=== PATIENT | male | born 1940 | race Caucasian/White ===

== ENCOUNTER 2016-11-03 08:31 | Outpatient (CLI) | payer MEDICARE | END 2016-11-03 08:32 | disposition home or self-care (01) | DX: E78.00 Pure hypercholesterolemia, unspecified (principal) ==

== ENCOUNTER 2017-12-30 07:49 | Outpatient (CLI) | payer MEDICARE ==
[2017-12-30 10:22] LABS: ALT ALANINE AMINOTRANSFERASE 12 IU/L (10-60); AST ASPARTATE AMINOTRANSFERASE 23 IU/L (10-42); BUN - BLOOD UREA NITROGEN 22 mg/dL (6-20); CARBON DIOXIDE - CO2 26 mmol/L (21-32); CHLORIDE 101 mmol/L (101-111); CHOL/HDL RATIO 2.7 (<5.0); CHOLESTEROL 209 mg/dL; GFR - MDRD 73 (>89); GLUCOSE 91 mg/dL (70-100); HDL CHOLESTEROL 77 mg/dL; LDL CHOLESTEROL,CALCULATED 118 mg/dL; LDL/HDL RATIO 1.5 (<3.6); SODIUM 137 mmol/L (135-145); VLDL CHOLESTEROL 14 mg/dL
== END 2017-12-30 07:50 | disposition home or self-care (01) ==
LOC: LAB.F 07:49
PROVIDERS: ATTEND Internal Medicine
DX: I44.2 Atrioventricular block, complete (principal); E78.5 Hyperlipidemia, unspecified
CPT/HCPCS: 36415; 80048; 80061; 83721; 84450; 84460

== ENCOUNTER 2018-05-15 10:02 | Outpatient (CLI) | payer MEDICARE ==
[2018-05-15 17:57] LABS: BASOPHILS % (AUTO) 0.3 %; EOSINOPHILS # (AUTO) 0.1 10^3/uL (0.0-0.7); EOSINOPHILS % (AUTO) 1.6 %; HGB - HEMOGLOBIN 15.2 g/dL (14.0-18.0); LYMPHOCYTES % (AUTO) 32.4 %; MEAN CORPUSCULAR HGB CONC 34.1 g/dL (32.0-36.0); MEAN CORPUSCULAR VOLUME 96.9 fL (80.0-94.0); MEAN PLATELET VOLUME 7.2 fL (7.4-11.4); MONOCYTES # (AUTO) 0.6 10^3/uL (0.0-1.0); MONOCYTES % (AUTO) 8.9 %; NEUTROPHILS # (AUTO) 3.6 10^3/uL (1.5-6.6); NEUTROPHILS % (AUTO) 56.8 %; PLT - PLATELET COUNT 165 10^3/uL (130-450); RED BLOOD COUNT 4.62 10^6/uL (4.70-6.10); RED CELL DISTRIBUTION WIDTH 13.4 % (12.0-15.0); WHITE BLOOD COUNT 6.3 x10^3/uL (4.8-10.8)
[2018-05-15 18:01] LABS: PT - PROTHROMBIN TIME 10.9 secs (9.9-12.6)
[2018-05-15 18:09] LABS: CALCIUM 9.3 mg/dL (8.5-10.3); CREATININE 0.9 mg/dL (0.6-1.2)
== END 2018-05-15 10:03 | disposition home or self-care (01) ==
LOC: LAB.F 10:02
PROVIDERS: ATTEND Internal Medicine
DX: T82.110A Breakdown (mechanical) of cardiac electrode, initial encounter (principal); I44.2 Atrioventricular block, complete
CPT/HCPCS: 36415; 80048; 85025; 85610; 85730

== ENCOUNTER 2019-01-02 07:30 | Outpatient (CLI) | payer MEDICARE ==
[2019-01-02 10:50] LABS: HGB - HEMOGLOBIN 14.9 g/dL (14.0-18.0); MEAN CORPUSCULAR HEMOGLOBIN 33.1 pg (27.0-31.0); MEAN CORPUSCULAR HGB CONC 33.6 g/dL (32.0-36.0); MEAN CORPUSCULAR VOLUME 98.7 fL (80.0-94.0); MEAN PLATELET VOLUME 7.2 fL (7.4-11.4); RED BLOOD COUNT 4.5 10^6/uL (4.70-6.10); RED CELL DISTRIBUTION WIDTH 13.7 % (12.0-15.0); WHITE BLOOD COUNT 4.4 x10^3/uL (4.8-10.8)
[2019-01-02 11:08] LABS: ALBUMIN 4.1 g/dL (3.2-5.5); ALBUMIN/GLOBULIN RATIO 1.1 (1.0-2.2); ALKALINE PHOSPHATASE 73 IU/L (42-121); ALT ALANINE AMINOTRANSFERASE 19 IU/L (10-60); AST ASPARTATE AMINOTRANSFERASE 38 IU/L (10-42); BILIRUBIN,TOTAL 0.8 mg/dL (0.2-1.0); BUN - BLOOD UREA NITROGEN 19 mg/dL (6-20); CALCIUM 9.2 mg/dL (8.5-10.3); CARBON DIOXIDE - CO2 23 mmol/L (21-32); CHLORIDE 104 mmol/L (101-111); CHOL/HDL RATIO 2.3 (<5.0); CHOLESTEROL 211 mg/dL; CREATININE 0.8 mg/dL (0.6-1.2); GFR - MDRD 94 (>89); GLUCOSE 91 mg/dL (70-100); HDL CHOLESTEROL 93 mg/dL; LDL CHOLESTEROL,CALCULATED 104 mg/dL; LDL/HDL RATIO 1.1 (<3.6); SODIUM 138 mmol/L (135-145); VLDL CHOLESTEROL 14 mg/dL
[2019-01-02 11:38] LABS: HB2 TOTAL 16.1 g/dL; HEMOGLOBIN A1C 0.54 g/dL; HEMOGLOBIN A1C % 5.2 % (4.6-6.2)
== END 2019-01-02 07:31 | disposition home or self-care (01) ==
LOC: LAB.F 07:30
PROVIDERS: ATTEND Internal Medicine
DX: E78.00 Pure hypercholesterolemia, unspecified (principal); R73.02 Impaired glucose tolerance (oral); M10.9 Gout, unspecified; I35.0 Nonrheumatic aortic (valve) stenosis
CPT/HCPCS: 36415; 80053; 80061; 83036; 83721; 84550; 85027

== ENCOUNTER 2020-01-26 04:13 | Outpatient (CLI) | payer MEDICARE | END 2020-01-26 04:14 | disposition EMS.NT | LOC: EMS 04:13 | PROVIDERS: ATTEND Surgery | DX: R51 Headache (principal) ==

== ENCOUNTER 2020-01-26 05:31 | Emergency (ER) | payer MEDICARE ==
--- NOTE | 2020-01-26 05:33 | ED Physician Documentation ---
PD HPI HEAD INJURY - Stated complaint Stated Complaint: HEAD PX/INJ - History obtained from History obtained from: Patient - History of Present Illness Mechanism of head injury: Blow Where head injury occurred: Home Timing - onset: How many weeks ago (1) Pain level now: 5 Location of injury: Back Quality of pain: Pain, Aching, Dull, Sharp, Other (initially pain had been aching and dull, but became sharp last night) Associated symptoms: No: LOC, AMS, Amnesia, Nausea / vomiting, Neck pain, Paresthesias Symptoms improve with: Nothing Symptoms worsen with: Palpation. No: Movement, Light, Noise Contributing factors: No: Anticoagulated, Intoxicated Similar symptoms before: Has not had sx before Recently seen: Not recently seen - Additional information Additional information: one week ago, patient was doing yardwork when he stepped on a rake; he was taking a step backwards, and thus the handle came up and struck him in the back of the head. He denies LOC, has had a headache since then but has been able to control the discomfort with tylenol and ibuprofen. Last night, the pain became worse and changed in quality from dull ache to a sharp, stinging sensation. The pain is not severe, per patient, but enough that it kept him from sleeping for most of the night. He called 911 and was evaluated at home and although he declined transport, he took the advice of the medics to come to ED for evaluation (driven to ED by his ). Patient only c/o posterior/occipital headache. Denies numbness, weakness, visual changes, nausea, vomiting, AMS Review of Systems Eyes: reports: Reviewed and negative Musculoskeletal: denies: Neck pain Neurologic: reports: Headache, Head injury. denies: Generalized weakness, Focal weakness, Numbness, LOC PD PAST MEDICAL HISTORY - Past Medical History Past Medical History: Yes Cardiovascular: High cholesterol - Present Medications Home Medications: Ambulatory Orders Medication Instructions Recorded Confirmed Aspirin 81 mg DAILY 01/26/20 01/26/20 Simvastatin 40 mg DAILY 01/26/20 01/26/20 - Allergies Allergies/Adverse Reactions: Allergies Allergy/AdvReac Type Severity Reaction Status Date / Time No Known Drug Allergies Allergy Verified 01/26/20 05:39 - Living Situation Living Situation: reports: With spouse/s.o. Living Arrangement: reports: At home PD ED PE NORMAL - Vitals Vital signs reviewed: Yes - General General: Alert and oriented X 3, No acute distress - HEENT HEENT: PERRL, EOMI, Other (mild occipital scalp tenderness with subtle swelling. no bony step-off. no neck tenderness. no echymosis including no post-auricular or infraorbital echymoses) - Neck Neck: No bony TTP - Neuro Neuro: Alert and oriented X 3, Normal speech Eye Opening: Spontaneous Motor: Obeys Commands Verbal: Oriented GCS Score: 15 Results - Vitals Vitals: Vital Signs - 24 hr 01/26/20 01/26/20 05:34 06:26 Temperature 36.3 C L Heart Rate 65 60 Respiratory 18 16 Rate Blood Pressure 160/77 H 152/71 H O2 Saturation 98 99 Oxygen O2 Source Room air - Rads (name of study) CT head Radiology: Prelim report reviewed, See rad report PD MEDICAL DECISION MAKING - ED course Complexity details: reviewed results, re-evaluated patient, considered differential, d/w patient ED course: patient declines analgesics, both in ED and as rx. He says he prefers to continue with tylenol and ibuprofen for now. No acute findings on CTH. Results d/w patient. Departure - Departure Disposition: 01 Home, Self Care Clinical Impression: Head injury Qualifiers: Encounter type: initial encounter Qualified Code(s): S09.90XA - Unspecified injury of head, initial encounter Condition: Good Instructions: ED Head Injury Closed Discharge Date/Time: 01/26/20 06:26
--- NOTE | 2020-01-26 06:13 | CT Report ---
Reason: headache, recent injury Procedure Date: 01/26/2020 Accession Number: [id number] / [id number] Procedure: CT - HEAD WO CPT Code: Final Report FULL RESULT: EXAM: CT HEAD EXAM DATE: 01/26/2020 06:06 AM. CLINICAL HISTORY: Headache, recent injury. COMPARISON: None. TECHNIQUE: Multiaxial CT images were obtained from the foramen magnum to the vertex. Reformats: Sagittal and coronal. IV contrast: None. In accordance with CT protocol optimization, one or more of the following dose reduction techniques were utilized for this exam: automated exposure control, adjustment of mA and/or KV based on patient size, or use of iterative reconstructive technique. FINDINGS: Parenchyma: No intraparenchymal hemorrhage. No evidence of mass, midline shift, or CT findings of acute infarction. Schulte-white differentiation is distinct. 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 Extraaxial Spaces: Normal for age. No subdural or epidural collections identified. Ventricles: The ventricles and cortical sulci are enlarged, consistent with age-related tissue loss. Sinuses and orbits: Imaged paranasal sinuses, orbits, and mastoids show no significant abnormality. Bones: No evidence of fracture or calvarial defect. Other: None. IMPRESSION: Generalized age-related cortical atrophic changes without evidence of acute intracranial abnormality. RADIA
[2020-01-26 06:26] VITALS: BP 152/71
== END 2020-01-26 06:26 | disposition home or self-care (01) ==
LOC: ED 05:31
DX: S09.90XA Unspecified injury of head, initial encounter (principal); W22.8XXA Striking against or struck by other objects, initial encounter; Y93.H1 Activity, digging, shoveling and raking; Y92.007 Garden or yard of unspecified non-institutional (private) residence as the place of occurrence of the external cause
CPT/HCPCS: 70450; 99283; 99284

== ENCOUNTER 2020-03-29 09:23 | Emergency (ER) | payer MEDICARE ==
--- NOTE | 2020-03-29 09:44 | ED Physician Documentation ---
PD HPI ABD PAIN - Stated complaint Stated Complaint: ABD PX/NAUSEA - Chief complaint Chief Complaint: Abd Pain - History obtained from History obtained from: Patient - History of Present Illness Timing - onset: Last night Timing - duration: Hours (12) Timing - details: Abrupt onset, Still present, Waxing and waning Quality: Cramping, Aching, Fullness/distended (moderate), Pain Location: Periumbilical Radiation: Lower back Improved by: No: Vomiting Associated symptoms: Nausea, Vomiting (several times through the night). No: Fever, Diarrhea, Constipation (states had small BM this morning) Similar symptoms before: Has not had sx before Review of Systems Constitutional: denies: Fever, Chills, Myalgias Nose: denies: Rhinorrhea / runny nose, Congestion Throat: denies: Sore throat Respiratory: denies: Cough GI: reports: Abdominal Pain, Abdominal Swelling, Nausea, Vomiting. denies: Constipation, Diarrhea, Hematemesis : denies: Dysuria, Frequency Skin: denies: Rash Musculoskeletal: denies: Neck pain, Extremity swelling Neurologic: reports: Generalized weakness. denies: Focal weakness, Numbness, Near syncope PD PAST MEDICAL HISTORY - Past Medical History Cardiovascular: High cholesterol, Valve disorder Respiratory: None Neuro: None Endocrine/Autoimmune: None - Past Surgical History Past Surgical History: Yes General: Appendectomy Cardiovascular: Valve replacement, Pacemaker - Present Medications Home Medications: Ambulatory Orders Medication Instructions Recorded Confirmed Aspirin 81 mg DAILY 01/26/20 01/26/20 Simvastatin 40 mg DAILY 01/26/20 01/26/20 Hydrocodone/Acetaminophen [[place] 1 each PO Q6H PRN #12 tablet 03/29/20 5-325 Tablet] Ondansetron Odt [Zofran] 4 mg TL Q6H PRN #10 tablet 03/29/20 - Allergies Allergies/Adverse Reactions: Allergies Allergy/AdvReac Type Severity Reaction Status Date / Time No Known Drug Allergies Allergy Verified 03/29/20 19:00 - Social History Does the pt smoke?: No Smoking Status: Never smoker Does the pt drink ETOH?: No Does the pt have substance abuse?: No - Immunizations Immunizations are current?: Yes - POLST Patient has POLST: No PD ED PE NORMAL - Vitals Vital signs reviewed: Yes - General General: Alert and oriented X 3, Well developed/nourished, Other (appears uncomfortable due to abd pain) - Neck Neck: Supple, no meningeal sign, No adenopathy - Cardiac Cardiac: RRR, Other (2/6 murmur noted left chest. ) - Respiratory Respiratory: No respiratory distress, Clear bilaterally - Abdomen Abdomen: Normal bowel sounds, Soft, No organomegaly, Other (mild distension mid abd. Bowel sounds are increased. No percussion nor rebound tenderness. ) - Male Male : Deferred - Rectal Rectal: Deferred - Back Back: No CVA TTP - Derm Derm: Normal color, Warm and dry - Extremities Extremities: No tenderness to palpate, Normal ROM s pain, No edema, No calf tenderness / cord - Neuro Neuro: Alert and oriented X 3, No motor deficit, Normal speech Results - Vitals Vitals: Vital Signs - 24 hr 03/29/20 03/29/20 03/29/20 09:36 10:30 11:00 Temperature 36.7 C Heart Rate 74 70 68 Respiratory 20 16 16 Rate Blood Pressure 164/75 H 153/83 H 145/68 H O2 Saturation 100 98 99 03/29/20 03/29/20 03/29/20 11:30 12:00 13:30 Temperature Heart Rate 66 78 71 Respiratory 16 16 16 Rate Blood Pressure 139/71 H 134/68 H 130/67 O2 Saturation 98 98 97 03/29/20 13:40 Temperature 36.5 C Heart Rate 70 Respiratory 18 Rate Blood Pressure 133/73 H O2 Saturation 98 Oxygen O2 Source Room air - Labs Labs: Laboratory Tests 03/29/20 03/29/20 09:50 09:50 WBC 8.6 RBC 4.74 Hgb 16.1 Hct 46.4 MCV 97.9 H MCH 34.0 H MCHC 34.7 RDW 13.1 Plt Count 166 MPV 9.4 Neut # (Auto) 7.1 H Lymph # (Auto) 0.8 L [place] # (Auto) 0.7 Eos # (Auto) 0.0 Baso # (Auto) 0.0 Absolute Nucleated RBC 0.00 Nucleated RBC % 0.0 Sodium 137 Potassium 3.9 Chloride 97 L Carbon Dioxide 26 Anion Gap 14.0 H BUN 19 Creatinine 0.9 Estimated GFR (MDRD) 82 L Glucose 129 H Calcium 9.5 Total Bilirubin 1.5 H AST 35 ALT 16 Alkaline Phosphatase 65 Total Protein 8.5 H Albumin 4.6 Globulin 3.9 Albumin/Globulin Ratio 1.2 Lipase 30 - Rads (name of study) abd CT Radiology: Prelim report reviewed (dilated proximal small bowel with A/F levels c/w partial small bowel. ), See rad report PD MEDICAL DECISION MAKING - ED course Complexity details: re-evaluated patient (He is feeling better with fluidsa nd meds. CT c/w partial SBO. he is feeling improved and able to take sips of liquids. He would perefer to go home. Watched in ER another hour or more to ensure seeming to stay improved. ), considered differential (I offered observation or admission to the patient given his findings on CT scan consistent with's partial small bowel obstruction. He was here another hour to an able to drink a glass or 2 of water and felt comfortable and wanted to go home. Shared decision was to go home with clear liquids/meds), d/w patient Departure - Departure Disposition: 01 Home, Self Care Clinical Impression: Partial small bowel obstruction Abdominal pain Qualifiers: Abdominal location: upper abdomen, unspecified Qualified Code(s): R10.10 - Upper abdominal pain, unspecified Vomiting Qualifiers: Vomiting type: unspecified Vomiting Intractability: non-intractable Nausea presence: with nausea Qualified Code(s): R11.2 - Nausea with vomiting, unspecified Condition: Stable Record reviewed to determine appropriate education?: Yes Instructions: ED Abdominal Pain Unkn Cause Follow-Up: Evans Winston MD [Primary Care Provider] - Prescriptions: Hydrocodone/Acetaminophen [[place]tt 5-325 Tablet] 1 each PO Q6H PRN #12 tablet PRN Reason: Pain Ondansetron Odt [Zofran] 4 mg TL Q6H PRN #10 tablet PRN Reason: Nausea / Vomiting Comments: Liquids only for this afternoon and liquid diet into tomorrow. Progressed to soft food and then regular diet tomorrow if tolerated. Ondansetron if needed for nausea. Tylenol or pain medicine if needed for pains. Recheck if worsening pain or repetitive vomiting despite medicine. Discharge Date/Time: 03/29/20 13:48
[2020-03-29 09:59] LABS: BASOPHILS % (AUTO) 0.2 %; HGB - HEMOGLOBIN 16.1 g/dL (14.0-18.0); LYMPHOCYTES # (AUTO) 0.8 10^3/uL (1.5-3.5); LYMPHOCYTES % (AUTO) 9.3 %; MEAN CORPUSCULAR HGB CONC 34.7 g/dL (32.0-36.0); MEAN CORPUSCULAR VOLUME 97.9 fL (80.0-94.0); MEAN PLATELET VOLUME 9.4 fL (7.4-11.4); MONOCYTES # (AUTO) 0.7 10^3/uL (0.0-1.0); MONOCYTES % (AUTO) 7.8 %; NEUTROPHILS # (AUTO) 7.1 10^3/uL (1.5-6.6); NEUTROPHILS % (AUTO) 82.2 %; PLT - PLATELET COUNT 166 10^3/uL (130-450); RED BLOOD COUNT 4.74 10^6/uL (4.70-6.10); RED CELL DISTRIBUTION WIDTH 13.1 % (12.0-15.0); WHITE BLOOD COUNT 8.6 x10^3/uL (4.8-10.8)
[2020-03-29 10:13] LABS: ALBUMIN 4.6 g/dL (3.2-5.5); ALBUMIN/GLOBULIN RATIO 1.2 (1.0-2.2); BILIRUBIN,TOTAL 1.5 mg/dL (0.2-1.0); CALCIUM 9.5 mg/dL (8.5-10.3); CREATININE 0.9 mg/dL (0.6-1.2); TOTAL PROTEIN 8.5 g/dL (6.7-8.2)
[2020-03-29] MEDS ORDERED: ONDANSETRON 4 MG/2 ML VIAL IVP STA (10:26)
[2020-03-29] MEDS ORDERED: SODIUM CHLORIDE 0.9% 1,000 ML IV STA (10:26)
[2020-03-29] MEDS ORDERED: HYDROmorphone 1 MG/ML CARPUJECT IVP STA (10:26)
[2020-03-29] MEDS ORDERED: IOVERSOL 320 100 ML VIAL IVP ONE ×2 (10:37→10:59)
--- NOTE | 2020-03-29 11:05 | CT Report ---
PROCEDURE: Abdomen/Pelvis W INDICATIONS: mid to upper abd pain since last evening CONTRAST: IV CONTRAST: Optiray 320 ml: 100 PO CONTRAST: *NO PO CONTRAST TECHNIQUE: After the administration of oral and intravenous contrast, 5 mm thick sections acquired from the diap hragms to the symphysis. 5 mm thick coronal and sagittal reformats were acquired. For radiation dos e reduction, the following was used: automated exposure control, adjustment of mA and/or kV accordin g to patient size. COMPARISON: None. FINDINGS: Image quality: Excellent. ABDOMEN: Lung bases: Lung bases are clear. Heart size is normal. Solid organs: Liver is borderline prominent with steatosis. The spleen is unremarkable. Gallbladder is unremarkable Biliary system is non dilated. Pancreas enhances normally. No adrenal nodules. Ki dneys demonstrate normal size and enhancement, without hydronephrosis. Peritoneum and bowel: There are dilated fluid-filled loops of small bowel with transition point suspe cted to be within the lower central abdomen/upper pelvis. No free air. Trace perihepatic fluid. Line [place] diverticula are present without inflammatory change. Nodes and vessels: No retroperitoneal or mesenteric adenopathy by size criteria. Aorta and inferior vena cava are normal in size. Miscellaneous: No ventral hernias. Mild hiatal hernia. PELVIS: Genitourinary: Bladder wall thickness is normal. Miscellaneous: No inguinal hernias or adenopathy. Bones: No suspicious bony lesions. No vertebral body compression fractures. IMPRESSION: 1. Prominently dilated fluid-filled loops of small bowel as above. Overall appearance is most consist ent with partial small bowel obstruction. 2. Diverticulosis. Reviewed by: Bee Smart MD on 03/29/2020 11:03 AM PDT Approved by: Bee Smart MD on 03/29/2020 11:03 AM PDT Station ID: [id number]
[2020-03-29 13:41] VITALS: BP 133/73
== END 2020-03-29 13:48 | disposition home or self-care (01) ==
LOC: ED 09:23
DX: K56.600 Partial intestinal obstruction, unspecified as to cause (principal)
CPT/HCPCS: 36415; 74177; 80053; 83690; 85025; 96374; 99285; J1170; Q9967

== ENCOUNTER 2020-03-29 18:50 | Observation (INO) | payer MEDICARE ==
--- NOTE | 2020-03-29 19:52 | ED Physician Documentation ---
PD HPI ABD PAIN - Stated complaint Stated Complaint: N/ABD PX/VOM - Chief complaint Chief Complaint: Abd Pain - History obtained from History obtained from: Patient, Family - History of Present Illness Timing - onset: Today Timing - duration: Days (1) Timing - details: Abrupt onset Pain level max: 9 Pain level now: 9 Associated symptoms: Nausea, Vomiting. No: Fever, Diarrhea, Constipation - Additional information Additional information: Patient was seen here earlier today. Diagnosed with a partial small bowel obstruction. He wanted to try going home. When he got home he began to have pain and vomiting again. Has now returned. Review of Systems Ten Systems: 10 systems reviewed and negative Constitutional: denies: Fever Ears: denies: Ear pain Nose: denies: Rhinorrhea / runny nose, Congestion Respiratory: denies: Cough GI: reports: Abdominal Pain (Crampy, diffuse), Vomiting Skin: denies: Rash Musculoskeletal: denies: Neck pain, Back pain Neurologic: denies: Headache PD PAST MEDICAL HISTORY - Past Medical History Past Medical History: Yes Cardiovascular: High cholesterol - Past Surgical History Past Surgical History: Yes General: Appendectomy Cardiovascular: Valve replacement, Pacemaker - Present Medications Home Medications: Ambulatory Orders Medication Instructions Recorded Confirmed Aspirin 81 mg DAILY 01/26/20 01/26/20 Simvastatin 40 mg DAILY 01/26/20 01/26/20 Hydrocodone/Acetaminophen [[place] 1 each PO Q6H PRN #12 tablet 03/29/20 5-325 Tablet] Ondansetron Odt [Zofran] 4 mg TL Q6H PRN #10 tablet 03/29/20 - Allergies Allergies/Adverse Reactions: Allergies Allergy/AdvReac Type Severity Reaction Status Date / Time No Known Drug Allergies Allergy Verified 03/29/20 19:00 - Social History Does the pt smoke?: No Smoking Status: Never smoker Does the pt drink ETOH?: No Does the pt have substance abuse?: No - Immunizations Immunizations are current?: Yes - POLST Patient has POLST: No PD ED PE NORMAL - Vitals Vital signs reviewed: Yes - General General: Alert and oriented X 3, No acute distress, Well developed/nourished - HEENT HEENT: Moist mucous membranes - Neck Neck: Supple, no meningeal sign - Cardiac Cardiac: RRR, Strong equal pulses - Respiratory Respiratory: No respiratory distress, Clear bilaterally - Abdomen Abdomen: Other (Distended abdomen, diffusely tender. No peritoneal signs) - Back Back: No CVA TTP, No spinal TTP - Derm Derm: Warm and dry - Extremities Extremities: No edema - Neuro Neuro: Alert and oriented X 3 - Psych Psych: Normal mood, Normal affect Results - Vitals Vitals: Vital Signs - 24 hr 03/29/20 03/29/20 19:00 19:07 Temperature 36.7 C 36.7 C Heart Rate 73 73 Respiratory 18 18 Rate Blood Pressure 154/68 H 154/68 H O2 Saturation 98 98 Oxygen O2 Source Room air - Rads (name of study) Abdominal x-ray Radiology: Prelim report reviewed, EMP read contemporaneously, See rad report (NG tube appears in stomach) PD MEDICAL DECISION MAKING - ED course Complexity details: reviewed old records, reviewed results, re-evaluated patient, considered differential, d/w patient, d/w dynamics ax consultant ED course: Patient with a small bowel obstruction on CT earlier today. NG tube was placed with return of stomach contents. We will admit the patient for further care. Discussed the case with Dr. De Jesus, hospitalist who accepts. If patient worsens, hospitalist states that they will consult surgery, surgery not consulted at this time. Does not appear to be a surgical case currently This document was made in part using voice recognition software. While efforts are made to proofread this document, sound alike and grammatical errors may occur. Departure - Departure Disposition: 66 [facility] DC/Lenny Clinical Impression: Small bowel obstruction Condition: Stable Discharge Date/Time: 03/29/20 21:27
[2020-03-29] MEDS ORDERED: HYDROmorphone 0.5 MG/0.5 ML SYRINGE IVP PRN (19:54)
[2020-03-29] MEDS ORDERED: ONDANSETRON 4 MG/2 ML VIAL IVP PRN (19:54)
--- NOTE | 2020-03-29 20:02 | HISTORY & PHYSICAL EXAMINATION ---
Chief Complaint - Chief Complaint Chief Complaint: abdominal pain, n/v History of Present Illness - Ad[facility] - History Obtained From Records Reviewed: yes History obtained from: patient - History of Present Illness HPI Comment/Other: Patient is a 79-year-old male with history of coronary artery disease, CABG, bovine valve replacement and hyperlipidemia who presented to the ED with complaint of abdominal pain, nausea and vomiting. His symptoms initially started at 9 AM this morning. He described the abdominal pain as crampy and achy. He presented to the ED and work-up showed a partial small bowel obstruction. Admission was recommended, however he declined and wanted to go home. Around 4 PM his symptoms worsened so he returned to the ED where he had an NG-tube placed and was presented for admission. He denied any previous occurrence of bowel obstruction. He has a history of an appendectomy. At time of presentation he was laying calmly in bed. He rated his pain 8 out of 10. He reported tenderness to palpation but was not guarding. Abdominal sounds are present but somewhat diminished. He denied chest pain, dyspnea or fever. History - Past Medical History Cardiovascular: reports: High cholesterol, Coronary artery disease, Murmur, Valve disorder MRSA Hx?: No - Past Surgical History General: reports: Appendectomy Cardiovascular: reports: CABG, Valve replacement, Pacemaker - Family & Social History Family History Comment/Other: Patient denied any significant family history Social History Notes: He lives at home with her spouse. He is independent of activities of daily living. He ambulates with no aids. He denies tobacco use. He reports 2 drinks daily. He denies any illicit drug use. - POLST Patient has POLST: No POLST Status: DNR Meds/Allgy - Home Medications Home Medications: Ambulatory Orders Medication Instructions Recorded Confirmed Aspirin 81 mg DAILY 01/26/20 01/26/20 Simvastatin 40 mg DAILY 01/26/20 01/26/20 Hydrocodone/Acetaminophen [[place] 1 each PO Q6H PRN #12 tablet 03/29/20 5-325 Tablet] Ondansetron Odt [Zofran] 4 mg TL Q6H PRN #10 tablet 03/29/20 - Allergies Allergies/Adverse Reactions: Allergies Allergy/AdvReac Type Severity Reaction Status Date / Time No Known Drug Allergies Allergy Verified 03/29/20 19:00 Review of Systems - Constitutional Constitutional: denies: Fatigue, Fever, Chills - Eyes Eyes: denies: Pain - Ears, Nose & Throat Ears, Nose & Throat: denies: Ear pain - Cardiovascular Cariovascular: denies: Irregular heart rate, Palpitations, Chest pain, Edema - Respiratory Respiratory: denies: Cough, Sputum production, Wheezing, SOB at rest - Gastrointestinal Gastrointestinal: reports: Abdominal pain, Nausea, Vomiting. denies: Abdominal distention - Genitourinary Genitourinary: denies: Dysuria - Musculoskeletal Musculoskeletal: denies: Muscle pain, Back pain, Muscle aches - Integumentary Integumentary: denies: Rash, Pruritis - Neurological Neurological: denies: General weakness, Headache - Psychiatric Psychiatric: denies: Depression, Anxiety - Endocrine Endocrine: denies: Polyuria, Polydypsia - Hematologic/Lymphatic Hematologic/Lymphatic: denies: Anemia, Bruising, Petechiae Prior Level of Functionality: Patient is independent of activities of daily living Exam - Vital Signs Vital Signs: Vital Signs x48h Temp Pulse Resp BP Pulse Ox 03/29/20 19:07 36.7 C 73 18 154/68 H 98 03/29/20 19:00 36.7 C 73 18 154/68 H 98 - Physical Exam General Appearance: positive: Alert, Moderate distress Eyes Bilateral: positive: PERRL, EOMI ENT: positive: ENT inspection nml Neck: positive: No JVD, Trachea midline Respiratory: positive: Chest non-tender, No respiratory distress, Breath sounds nml. negative: Wheezes Cardiovascular: positive: Regular rate & rhythm Abdomen: positive: No distention, Tenderness. negative: Guarding Back: positive: Nml inspection Skin: positive: Color nml, No rash, Warm Extremities: positive: Non-tender, Full ROM, Nml appearance, No pedal edema Neurologic/Psychiatric: positive: Oriented x3, Mood/affect nml Conclusion/Plan - Problem List (1) Partial small bowel obstruction Conclusion/Plan: Patient made n.p.o. NG tube in place. Will connect to low intermittent suction. IV hydration with normal saline at 125 mils per hour. Encourage ambulation. If no improvement within the next 12 hours, will consider general surgery consult. (2) Hyperlipidemia Conclusion/Plan: Patient is on simvastatin at home. We will hold for now while patient has partial small bowel obstruction and is on intermittent suction via nasogastric tube (3) Hx of coronary artery disease Conclusion/Plan: Status post CABG in the past. Patient takes a baby aspirin daily. Will resume once able to do so. - Lab Results Lab results reviewed: Yes Core Measures - Anticipated LOS I expect patient to be DC'd or transferred within 96 hours.: Yes - DVT/VTE - Prophylaxis VTE/DVT Device ordered at admit?: Yes VTE/DVT Prophylaxis med ordered at admit?: Yes
[2020-03-29] MEDS ORDERED: PROMETHAZINE INJ 25 MG in SODIUM CHLORIDE 0.9% 50 ML IV STA (20:05)
[2020-03-29] MEDS ORDERED: LIDOCAINE TOPICAL 4% 50 ML BOTTLE TOP ONE (20:22)
[2020-03-29] MEDS: SODIUM CHLORIDE 0.9% 1,000 ML IV SCH (21:37)
[2020-03-29] MEDS: SODIUM CHLORIDE FLUSH 0.9% 10 ML SYRINGE IVP SCH ×2 (21:43→23:35)
[2020-03-29] MEDS: SODIUM CHLORIDE FLUSH 0.9% 10 ML SYRINGE IVP PRN (22:22)
--- NOTE | 2020-03-29 22:51 | XRAY Report ---
PROCEDURE: Abdomen 1 View X-Ray INDICATIONS: ng tube placement TECHNIQUE: 1 view of the abdomen were acquired. COMPARISON: CT abdomen pelvis 03/29/2020. FINDINGS: Surgical changes and devices: There is a 3 cm linear density overlying the left upper abdomen. Bowel: No pneumoperitoneum. The bowel gas pattern demonstrates scattered loops of fluid-filled dila alek small bowel. Soft tissues: No masses; visualized solid organ contours appear normal in size. No suspicious abdom inal calcifications. Contrast is noted within the bladder from recent contrast administration. Bones: No suspicious bony abnormalities. IMPRESSION: 1. 3 cm linear density overlying the left upper quadrant. This is at the top edge of the film. This c ould represent nasogastric tube. However, further visualization with chest x-ray is recommended for i dentification and localization. 2. Persistent dilated loops of small bowel consistent with known partial small bowel obstruction. Reviewed by: Bee Smart MD on 03/29/2020 10:50 PM PDT Approved by: Bee Smart MD on 03/29/2020 10:50 PM PDT Station ID: [id number]
[2020-03-30] MEDS: SODIUM CHLORIDE 0.9% 1,000 ML IV SCH (05:13)
[2020-03-30 05:14] LABS: BASOPHILS % (AUTO) 0.4 %; HGB - HEMOGLOBIN 13.1 g/dL (14.0-18.0); LYMPHOCYTES # (AUTO) 1.3 10^3/uL (1.5-3.5); LYMPHOCYTES % (AUTO) 17.1 %; MEAN CORPUSCULAR HEMOGLOBIN 32.3 pg (27.0-31.0); MEAN CORPUSCULAR HGB CONC 32.7 g/dL (32.0-36.0); MEAN PLATELET VOLUME 8.9 fL (7.4-11.4); MONOCYTES # (AUTO) 0.7 10^3/uL (0.0-1.0); MONOCYTES % (AUTO) 8.6 %; NEUTROPHILS # (AUTO) 5.6 10^3/uL (1.5-6.6); NEUTROPHILS % (AUTO) 73.6 %; PLT - PLATELET COUNT 133 10^3/uL (130-450); RED BLOOD COUNT 4.05 10^6/uL (4.70-6.10); RED CELL DISTRIBUTION WIDTH 13.6 % (12.0-15.0); WHITE BLOOD COUNT 7.6 x10^3/uL (4.8-10.8)
[2020-03-30 05:22] LABS: CALCIUM 8.3 mg/dL (8.5-10.3); CREATININE 0.8 mg/dL (0.6-1.2)
[2020-03-30] MEDS: SODIUM CHLORIDE FLUSH 0.9% 10 ML SYRINGE IVP PRN (06:40)
[2020-03-30] MEDS: SODIUM CHLORIDE FLUSH 0.9% 10 ML SYRINGE IVP SCH (06:40)
[2020-03-30] MEDS ORDERED: PANTOPRAZOLE 40 MG VIAL IVP SCH (07:00)
[2020-03-30 07:46] VITALS: BP 141/82
[2020-03-30] MEDS ORDERED: ENOXAPARIN 40 MG/0.4 ML SYRINGE SUBQ SCH (09:00)
--- NOTE | 2020-03-30 09:30 | Discharge Plan ---
Discharge Plan Problem Reviewed?: Yes Disposition: Home, Self Care Condition: Stable Diet: Regular (with low residue, low fiber) Activity Restrictions: No Restrictions Shower Restrictions: No Driving Restrictions: No Health Concerns: You came to emergency room with nausea, vomiting, severe abdominal cramping. You were diagnosed as a partial small bowel obstruction and opted to go home. You then returned when the pain was worse. Treatment consisted of NG tube decompression, IV fluids, and the small bowel obstruction resolved on its own. CAT scan does not show cause of the obstruction. There is no adhesions seen, no tumor seen, no volvulus. Plan of Treatment: Consisted of NG tube decompression, IV fluids for hydration, and medicines for pain and nausea. Care Goals: Please follow-up with seeing your primary care provider, they may need further investigation to find out why you had the small bowel obstruction. If you have any change in symptoms in your bowel habits, please notify your primary care provider. Assessment: Patient understands care goals and will follow through. No Smoking: If you smoke, Please STOP! Call for help. Follow-up with: Evans Winston MD [Primary Care Provider] -
--- NOTE | 2020-03-30 09:32 | PHARMACY PROGRESS NOTE ---
- Best Possible Medication History Admit Date and Time: 03/29/201953 Processed by: Pharmacy Medication History completed: Yes Patient Interview: Completed Secondary Source(s): Pharmacy records, Insurance records As the person ultimately responsible for medication therapy, providers are able to order a medication from an existing home medication list in [facility] via the "Reconcile Routine" prior to Confirmation of that medication by computer technical support specialist. Such practice is discouraged except when the physician, in their clinical judgment, deems that a medical need exists for a medication without regard to previous use.
--- NOTE | 2020-03-30 10:22 | XRAY Report ---
PROCEDURE: Abdomen 1 View X-Ray INDICATIONS: follow sbo TECHNIQUE: 1 view of the abdomen were acquired. COMPARISON: CT abdomen and pelvis dated 03/29/2020 FINDINGS: Surgical changes and devices: None. Bowel: No pneumoperitoneum. Currently the bowel gas pattern is nonspecific. No dilated loops of smal l bowel are identified. Soft tissues: No masses; visualized solid organ contours appear normal in size. No suspicious abdom inal calcifications. Bones: No suspicious bony abnormalities. IMPRESSION: Nonspecific bowel gas pattern. No definite evidence of small bowel obstruction by plain films at this time. Reviewed by: Farrukh Gonsalez MD on 03/30/2020 9:20 AM PEDRITO Approved by: Farrukh Gonsalez MD on 03/30/2020 9:20 AM PEDRITO Station ID: [id number]
--- NOTE | 2020-04-15 17:32 | DISCHARGE SUMMARY ---
Physician: Livier Vidales MD DATE OF ADMISSION: 03/29/2020 DATE OF DISCHARGE: 03/30/2020 PRIMARY CARE PROVIDER: Evans Winston MD DISCHARGE DIAGNOSES: 1. Partial small-bowel obstruction. 2. Hyperlipidemia. 3. History of coronary artery disease. DISCHARGE MEDICATIONS: Simvastatin 20 mg every evening. PRINCIPAL PROCEDURES: 1. Nasogastric tube placement. 2. Abdomen x-ray 03/29/2020, with persistent dilated loops of small bowel consistent with known part ial small-bowel obstruction. Followup film on 03/30/2020 showed nonspecific bowel gas pattern. No d efinite evidence for small-bowel obstruction by plain films at this time. 3. Previous abdominal CT done with previous ER visit done earlier today, but before this admission, showed partial small-bowel obstruction. HISTORY OF PRESENT ILLNESS: The patient is a 79-year-old white male whose previous abdominal history consists of an appendectomy. He says that he has a history of remote colonoscopy that was normal. He presented to the Emergency Room with abdominal pain, nausea, vomiting. Symptoms started at 9 in t he morning. The abdominal pain was crampy, achy. Off and on. He came to the Emergency Room where wo rkup showed a small-bowel obstruction that was partial. Admission was recommended, but he declined a dmission and he wanted to go home. At 4 p.m., his symptoms worsen so he returned to the Emergency Ro om where an NG tube was placed, and he was presented for admission again. When he was lying in bed, his pain was 8/10. Tenderness to palpation, but no guarding. He did not have a fever nor did he hav e an elevated white cell count. HOSPITAL COURSE: The patient has a history of coronary artery disease, and hyperlipidemia. Those we re taken into account while he was here and he remained symptom free from those diseases. An NG was placed, connected to low intermittent suction. The next morning, patient had bowel movement. We the n advanced his diet from clears to regular diet. He ambulated in the hallways very nicely. He had y et another bowel movement. He no longer felt pain, and was anxious to get home. PHYSICAL EXAMINATION: VITAL SIGNS: As such, at discharge, his temperature was 36.8, pulse 70, blood pressure 141/82, respi rations 18, and he was 99% on room air. GENERAL: He is a 5 feet 10 inch male who weighs 79 kg. Completely independent with ambulation. No ataxia, no furniture surfing. No feet shuffling. NECK: Supple. LUNGS: Clear to auscultation and percussion. HEART: PMI was normally placed. ABDOMEN: Slightly achy with deep palpation in a generalized exam, but had normal bowel sounds. No r ebound or guarding. As such, he was discharged in stable condition. I have warned him that whatever caused his bowel obs truction could come back again. He might want to seek GI consultation for an upper GI with small bow el follow through, or a repeat colonoscopy. I asked him to please see his primary care provider in [facility]. No changes in his medications were made. I asked him to be on a low-residue diet for the n ext couple of weeks. cc: Evans Winston MD TD: 04/15/2020 16:58
== END 2020-03-30 15:44 | disposition home or self-care (01) ==
LOC: ED 18:50 → MS2 19:54
PROVIDERS: ADMIT Internal Medicine; ATTEND Specialist
DX: K56.600 Partial intestinal obstruction, unspecified as to cause (principal); E78.5 Hyperlipidemia, unspecified; I25.10 Atherosclerotic heart disease of native coronary artery without angina pectoris; Z95.3 Presence of xenogenic heart valve; Z95.1 Presence of aortocoronary bypass graft; Z95.0 Presence of cardiac pacemaker; Z79.82 Long term (current) use of aspirin
CPT/HCPCS: 36415; 74018; 74177; 80048; 80053; 83690; 85025; 96361; 96365; 96372; 96374; 96375; 99285; G0378; J1170; J1650; J7040; Q9967

== ENCOUNTER 2020-11-19 17:37 | Outpatient (CLI) | payer MEDICARE ==
[2020-11-19 20:13] LABS: BASOPHILS % (AUTO) 0.4 %; EOSINOPHILS # (AUTO) 0.2 10^3/uL (0.0-0.7); EOSINOPHILS % (AUTO) 3.1 %; HGB - HEMOGLOBIN 14.7 g/dL (14.0-18.0); LYMPHOCYTES # (AUTO) 1.6 10^3/uL (1.5-3.5); LYMPHOCYTES % (AUTO) 31.7 %; MEAN CORPUSCULAR HEMOGLOBIN 32.8 pg (27.0-31.0); MEAN CORPUSCULAR HGB CONC 32.5 g/dL (32.0-36.0); MEAN CORPUSCULAR VOLUME 101.1 fL (80.0-94.0); MEAN PLATELET VOLUME 9.5 fL (7.4-11.4); MONOCYTES # (AUTO) 0.5 10^3/uL (0.0-1.0); MONOCYTES % (AUTO) 9.3 %; NEUTROPHILS # (AUTO) 2.9 10^3/uL (1.5-6.6); NEUTROPHILS % (AUTO) 55.1 %; PLT - PLATELET COUNT 149 10^3/uL (130-450); RED BLOOD COUNT 4.48 10^6/uL (4.70-6.10); RED CELL DISTRIBUTION WIDTH 13.2 % (12.0-15.0); WHITE BLOOD COUNT 5.2 x10^3/uL (4.8-10.8)
[2020-11-19 20:33] LABS: ALBUMIN 4.5 g/dL (3.2-5.5); ALBUMIN/GLOBULIN RATIO 1.1 (1.0-2.2); ALKALINE PHOSPHATASE 68 IU/L (42-121); ALT ALANINE AMINOTRANSFERASE 19 IU/L (10-60); AST ASPARTATE AMINOTRANSFERASE 40 IU/L (10-42); BILIRUBIN,TOTAL 1.4 mg/dL (0.2-1.0); BUN - BLOOD UREA NITROGEN 21 mg/dL (6-20); CALCIUM 9.1 mg/dL (8.5-10.3); CARBON DIOXIDE - CO2 23 mmol/L (21-32); CHLORIDE 99 mmol/L (101-111); CHOL/HDL RATIO 2.5 (<5.0); CHOLESTEROL 234 mg/dL; CREATININE 0.8 mg/dL (0.6-1.2); GLUCOSE 80 mg/dL (70-100); HDL CHOLESTEROL 93 mg/dL; LDL CHOLESTEROL,CALCULATED 126 mg/dL; LDL/HDL RATIO 1.4 (<3.6); TOTAL PROTEIN 8.5 g/dL (6.7-8.2); VLDL CHOLESTEROL 15 mg/dL
== END 2020-11-19 17:38 | disposition home or self-care (01) ==
LOC: LAB.S 17:37
PROVIDERS: ATTEND Internal Medicine
DX: E78.00 Pure hypercholesterolemia, unspecified (principal); Z79.899 Other long term (current) drug therapy; Z12.5 Encounter for screening for malignant neoplasm of prostate
CPT/HCPCS: 36415; 80053; 80061; 84443; 85025; G0103; 83721; 84153

== ENCOUNTER 2020-11-25 18:49 | Outpatient (CLI) | payer MEDICARE | END 2020-11-25 18:50 | disposition home or self-care (01) | LOC: COV 18:49 | PROVIDERS: ATTEND Ophthalmology | DX: Z01.812 Encounter for preprocedural laboratory examination (principal); H35.349 Macular cyst, hole, or pseudohole, unspecified eye; Z20.822 Contact with and (suspected) exposure to COVID-19 ==

== ENCOUNTER 2021-06-26 07:52 | Outpatient (CLI) | payer MEDICARE ==
[2021-06-26 14:44] LABS: ALBUMIN 4.3 g/dL (3.2-5.5); ALBUMIN/GLOBULIN RATIO 1.1 (1.0-2.2); ALKALINE PHOSPHATASE 75 IU/L (42-121); ALT ALANINE AMINOTRANSFERASE 18 IU/L (10-60); AST ASPARTATE AMINOTRANSFERASE 36 IU/L (10-42); BILIRUBIN,TOTAL 1.1 mg/dL (0.2-1.0); BUN - BLOOD UREA NITROGEN 20 mg/dL (6-20); CALCIUM 9.4 mg/dL (8.5-10.3); CARBON DIOXIDE - CO2 28 mmol/L (21-32); CHLORIDE 103 mmol/L (101-111); CHOL/HDL RATIO 2.5 (<5.0); CHOLESTEROL 230 mg/dL; CREATININE 0.9 mg/dL (0.6-1.2); GFR - MDRD 82 (>89); GLUCOSE 99 mg/dL (70-100); HDL CHOLESTEROL 93 mg/dL; LDL CHOLESTEROL,CALCULATED 126 mg/dL; LDL/HDL RATIO 1.4 (<3.6); POTASSIUM 4.5 mmol/L (3.5-5.0); SODIUM 140 mmol/L (135-145); TOTAL PROTEIN 8.1 g/dL (6.7-8.2); TRIGLYCERIDES 55 mg/dL; VLDL CHOLESTEROL 11 mg/dL
[2021-06-26 14:53] LABS: BASOPHILS # (AUTO) 0.1 10^3/uL (0.0-0.1); BASOPHILS % (AUTO) 0.9 %; EOSINOPHILS # (AUTO) 0.2 10^3/uL (0.0-0.7); EOSINOPHILS % (AUTO) 3.1 %; HCT - HEMATOCRIT 44.5 % (42.0-52.0); HGB - HEMOGLOBIN 14.8 g/dL (14.0-18.0); LYMPHOCYTES # (AUTO) 1.8 10^3/uL (1.5-3.5); LYMPHOCYTES % (AUTO) 33.8 %; MEAN CORPUSCULAR HEMOGLOBIN 33.4 pg (27.0-31.0); MEAN CORPUSCULAR HGB CONC 33.3 g/dL (32.0-36.0); MEAN CORPUSCULAR VOLUME 100.5 fL (80.0-94.0); MEAN PLATELET VOLUME 9.6 fL (7.4-11.4); MONOCYTES # (AUTO) 0.7 10^3/uL (0.0-1.0); MONOCYTES % (AUTO) 12.8 %; NEUTROPHILS # (AUTO) 2.7 10^3/uL (1.5-6.6); PLT - PLATELET COUNT 166 10^3/uL (130-450); RED BLOOD COUNT 4.43 10^6/uL (4.70-6.10); RED CELL DISTRIBUTION WIDTH 13.6 % (12.0-15.0); WHITE BLOOD COUNT 5.4 x10^3/uL (4.8-10.8)
== END 2021-06-26 07:53 | disposition home or self-care (01) ==
LOC: LAB.S 07:52
PROVIDERS: ATTEND Internal Medicine
DX: E78.00 Pure hypercholesterolemia, unspecified (principal); Z79.899 Other long term (current) drug therapy; Z12.5 Encounter for screening for malignant neoplasm of prostate
CPT/HCPCS: 36415; 80053; 80061; 85025; G0103; 83721; 84153

== ENCOUNTER 2022-06-25 11:28 | Outpatient (CLI) | payer MEDICARE ==
[2022-06-25 15:32] LABS: BASOPHILS % (AUTO) 0.7 %; EOSINOPHILS # (AUTO) 0.1 10^3/uL (0.0-0.7); EOSINOPHILS % (AUTO) 2.4 %; HCT - HEMATOCRIT 42.7 % (42.0-52.0); HGB - HEMOGLOBIN 14.4 g/dL (14.0-18.0); LYMPHOCYTES # (AUTO) 1.9 10^3/uL (1.5-3.5); LYMPHOCYTES % (AUTO) 31.8 %; MEAN CORPUSCULAR HGB CONC 33.7 g/dL (32.0-36.0); MEAN CORPUSCULAR VOLUME 97.7 fL (80.0-94.0); MEAN PLATELET VOLUME 9.4 fL (7.4-11.4); MONOCYTES # (AUTO) 0.6 10^3/uL (0.0-1.0); MONOCYTES % (AUTO) 9.3 %; NEUTROPHILS # (AUTO) 3.3 10^3/uL (1.5-6.6); NEUTROPHILS % (AUTO) 55.5 %; PLT - PLATELET COUNT 171 10^3/uL (130-450); RED BLOOD COUNT 4.37 10^6/uL (4.70-6.10); RED CELL DISTRIBUTION WIDTH 13.2 % (12.0-15.0); WHITE BLOOD COUNT 5.9 x10^3/uL (4.8-10.8)
[2022-06-25 15:40] LABS: CALCIUM 9.5 mg/dL (8.5-10.3); CARBON DIOXIDE - CO2 25 mmol/L (21-32); CHLORIDE 104 mmol/L (101-111); GLUCOSE 91 mg/dL (70-100); POTASSIUM 4.2 mmol/L (3.5-5.0); SODIUM 140 mmol/L (135-145)
[2022-06-25 16:09] LABS: ALBUMIN 4.1 g/dL (3.2-5.5); ALKALINE PHOSPHATASE 79 IU/L (42-121); ALT ALANINE AMINOTRANSFERASE 12 IU/L (10-60); AST ASPARTATE AMINOTRANSFERASE 32 IU/L (10-42); BUN - BLOOD UREA NITROGEN 24 mg/dL (6-20); CHOL/HDL RATIO 2.5 (<5.0); CHOLESTEROL 201 mg/dL; CREATININE 0.8 mg/dL (0.6-1.2); GFR - MDRD 93 (>89); HDL CHOLESTEROL 80 mg/dL; LDL CHOLESTEROL,CALCULATED 109 mg/dL; LDL/HDL RATIO 1.4 (<3.6); TOTAL PROTEIN 8.4 g/dL (6.7-8.2); TRIGLYCERIDES 58 mg/dL; VLDL CHOLESTEROL 12 mg/dL
== END 2022-06-25 11:29 | disposition home or self-care (01) ==
LOC: LAB.S 11:28
PROVIDERS: ATTEND Registered Nurse
DX: E78.00 Pure hypercholesterolemia, unspecified (principal); Z79.899 Other long term (current) drug therapy
CPT/HCPCS: 36415; 80053; 80061; 83721; 85025

== ENCOUNTER 2022-07-14 08:00 | Outpatient (CLI) | payer MEDICARE ==
--- NOTE | 2022-07-14 08:58 | XRAY Report ---
PROCEDURE: Ankle 3 View RT INDICATIONS: RIGHT ANKLE PAIN TECHNIQUE: 3 views of the ankle were acquired. COMPARISON: None FINDINGS: Bones: No fractures or dislocations. Ankle mortise is normally aligned. No suspicious bony lesions . Soft tissues: No tibiotalar joint effusion. Achilles tendon appears normal. IMPRESSION: No visualized acute fracture or dislocation. However, occult injury cannot be excluded. Recommend short interval imaging follow-up in 7-10 days as clinically indicated for additional evalua tion. Reviewed by: Bee Smart MD on 07/14/2022 8:57 AM PDT Approved by: Bee Smart MD on 07/14/2022 8:57 AM PDT Station ID: [id number]
== END 2022-07-14 23:59 | disposition home or self-care (01) ==
LOC: DI.S 08:00
PROVIDERS: ATTEND Physician Assistant Medical
DX: M25.571 Pain in right ankle and joints of right foot (principal)

== ENCOUNTER 2024-01-30 10:41 | Outpatient (CLI) | payer MEDICARE ==
--- NOTE | 2024-01-30 12:58 | XRAY Report ---
Shoulder 2+V LT HISTORY: 83 years of age, PAIN IN LEFT SHOULDER TECHNIQUE: Shoulder 2+V LT COMPARISON: None. 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 Mild degenerative changes of the acromioclavicular and the glenohumeral joint. No acute fracture or dislocation. Left subclavian pacemaker and median sternotomy wires, partially noted. Reviewed by: Re Sue MD on 01/30/2024 12:57 PM PDT Approved by: Re Sue MD on 01/30/2024 12:57 PM PDT Station ID: [id number]
== END 2024-01-30 10:42 | disposition home or self-care (01) ==
LOC: DI.S 10:41
PROVIDERS: ATTEND Nurse Practitioner
DX: M11.012 Hydroxyapatite deposition disease, left shoulder (principal); M19.012 Primary osteoarthritis, left shoulder; Z95.0 Presence of cardiac pacemaker